=== PATIENT | female | born 1950 | race Caucasian/White ===

== ENCOUNTER 2018-06-11 21:48 | Emergency (ER) | payer MEDICARE, MEDICAID ==
--- NOTE | 2018-06-11 21:59 | EDM.PDOC ---
ED HPI GENERAL MEDICAL PROBLEM - General Stated Complaint: FELL Time Seen by Provider: 06/11/18 21:48 Source of Information: Reports: Patient, Other (manager advanced) History Limitations: Reports: Other - History of Present Illness INITIAL COMMENTS - FREE TEXT/NARRATIVE: 68 y.o.w f came to the ed by van from the [facility]. Pt was found next to her bed, face down, in a "pool of blood" As per nursing aid. Pt herself is not able to give a HPI. No family is present. On arrival, there was blood using from her left nostril, which stopped after Afrin was injected in her left nostril. The nose was deformed. No N/V/D no Dressiness. Pt noticed a bruise at her right ant knee, minor. She had FROM of all her extremities. No other acute medical issues. BP 162/88 RR 18 Pulse ox 96% on RA Pulse 105 Temp 36.6 Onset Date: 06/11/18 Onset Time: 20:00 Duration: Hour(s): Location: Reports: Face Quality: Reports: Ache Severity: Mild Improves with: Reports: Medication, Rest Worsens with: Reports: Movement Context: Reports: Trauma (fell on face) Associated Symptoms: Reports: Other (nosebleed) - Related Data Allergies Allergy/AdvReac Type Severity Reaction Status Date / Time acetaminophen Allergy Hives Verified 01/15/16 16:09 codeine Allergy Hives Verified 01/15/16 16:09 Home Meds: Home Meds Cyanocobalamin (Vitamin B12) [Vitamin B12] 1,000 mcg IM Q30D 04/27/13 [History] Levothyroxine [Synthroid] 100 mcg PO DAILY 04/27/13 [History] Cholecalciferol (Vitamin D3) [Vitamin D3] 2,000 unit PO DAILY 06/15/13 [History] Aspirin [Halfprin] 81 mg PO DAILY 07/07/15 [History] Clindamycin Phosphate [Cleocin T] 1 applic TP DAILY PRN 07/07/15 [History] ClonazePAM [KlonoPIN] 0.25 mg PO BEDTIME 07/07/15 [History] Escitalopram [Lexapro] 10 mg PO DAILY #14 07/08/15 [Rx] Mirtazapine 7.5 mg PO BEDTIME 01/15/16 [History] Ascorbic Acid [Vitamin C] 60 mg PO ASDIRECTED PRN 06/11/18 [History] Bisacodyl 10 mg RC DAILY PRN 06/11/18 [History] Carbidopa/Levodopa [Carbidopa-Levodopa 25-250] 1 each PO QID 06/11/18 [History] Magnesium Hydroxide [Milk of Magnesia] 30 ml PO DAILY PRN 06/11/18 [History] Multivit-Min/FA/Lycopene/Lut [Centrum Silver Tablet] 1 each PO DAILY 06/11/18 [ History] OLANZapine [Zyprexa] 5 mg PO BEDTIME 06/11/18 [History] Past Medical History HEENT History: Reports: None Cardiovascular History: Reports: Hypertension Respiratory History: Reports: None Gastrointestinal History: Reports: None Genitourinary History: Reports: None JOURNEYMAN MECHANIC History: Reports: None Other JOURNEYMAN MECHANIC History: MENOPAUSE, ENDOMETRIAL HYPERPLASIA Musculoskeletal History: Reports: None Other Musculoskeletal History: MUSCLE WEAKNESS Neurological History: Reports: Parkinson's Psychiatric History: Reports: Dementia Endocrine/Metabolic History: Reports: Hypothyroidism Hematologic History: Reports: B12 Deficiency, Other (See Below) Other Hematologic History: vit D dificiency Immunologic History: Reports: None Oncologic (Cancer) History: Reports: None Dermatologic History: Reports: None - Infectious Disease History Infectious Disease History: Reports: None Social & Family History - Family History Family Medical History: Unobtainable - Caffeine Use Caffeine Use: Reports: Coffee ED ROS ENT - Review of Systems Review Of Systems: Unable To Obtain ED EXAM, ENT - Physical Exam Exam: See Below Exam Limited By: Other (poor historian) General Appearance: Alert, WD/WN, Mild Distress Eye Exam: Bilateral Eye: Normal Inspection Ears: Normal External Exam Nose: Nasal Deformity, Dried Blood Mouth/Throat: Normal Gums, Normal Lips, Other (poor dentition) Head: Facial Tenderness, Other (nasal deformity) Neck: Normal Inspection Respiratory/Chest: No Respiratory Distress, Lungs Clear, Normal Breath Sounds, Chest Non-Tender Cardiovascular: Normal Peripheral Pulses, Regular Rate, Rhythm, No Edema, No Gallop GI/Abdominal: Normal Bowel Sounds, Soft, Non-Tender, No Organomegaly, Pelvis Stable (Female) Exam: Deferred Rectal (Female) Exam: Deferred Back: Normal Inspection Extremities: Normal Range of Motion, Non-Tender, No Pedal Edema, Normal Capillary Refill, Other Neurological: Alert, CN II-XII Intact, Abnormal Gait (bed bound), Other (minor eccymosis right knee) Psychiatric: Normal Affect Skin: Warm, Dry, Intact, Normal Color, No Rash Lymphatic: No Adenopathy EKG INTERPRETATION EKG Date: 06/11/18 Time: 22:00 Rhythm: NSR Rate (Beats/Min): 73 [place]: Normal P-Wave: Present QRS: Normal ST-T: Normal QT: Normal Comparison: NA - No Prior EKG Course - Vital Signs Text/Narrative:: 68 y.o.w f came to the ed by van from the [facility]. Pt was found next to her bed, face down, in a "pool of blood" As per nursing aid. Pt herself is not able to give a HPI. No family is present. On arrival, there was blood using from her left nostril, which stopped after Afrin was injected in her left nostril. The nose was deformed. No N/V/D no Dressiness. Pt noticed a bruise at her right ant knee, minor. She had FROM of all her extremities. No other acute medical issues. BP 162/88 RR 18 Pulse ox 96% on RA Pulse 105 Temp 36.6 PE: Thin 68 y.o.w.f with a nose deformity and left ant epistaxis Imaging: Nasal bone fx, minor. Left sided epistaxis. minimal ecchymosis left ant knee Imaging: Nasal bone Fx Labs: Plts 1243 remainder of CBC was neg BMP neg except BUN was 21, Cr 1.2 GFR 45 Impression: Fall, Nasal bone Fx, epistaxis,Thrombocytosis Tx: Ice to the affected areas Reexam: Pt was stable in the ED Nosebleed stopped entirely Plan: D/C with instructions 9.56 am: Nurse Letty from [facility] was called and informed about the elevated Plts count being > 1000. lab results were faxed to [phone] Last Recorded V/S: Last Vital Signs Temp 36.8 C 06/12/18 00:16 Pulse 58 L 06/12/18 00:16 Resp 18 06/12/18 00:16 BP 174/74 H 06/12/18 00:16 Pulse Ox 98 06/12/18 00:16 - Orders/Labs/Meds Orders: Active Orders 24 hr Category Date Time Status EKG Documentation Completion [RC] ASDIRECTED Care 06/11/18 21:57 Active Head wo Cont [CT] Stat Exams 06/11/18 21:57 Taken Max Facial Sinus wo Cont [CT] Stat Exams 06/11/18 21:57 Taken EKG 12 Lead [EK] Routine Ther 06/11/18 21:57 Ordered Labs: Laboratory Tests 06/11/18 06/11/18 06/11/18 Range/Units 20:07 20:07 20:07 WBC 7.1 (4.5-12.0) X10-3/uL RBC 4.33 (3.23-5.20) x10(6)uL Hgb 12.7 (11.5-15.5) g/dL Hct 38.9 (30.0-51.3) % MCV 89.9 (80-96) fL MCH 29.4 (27.7-33.6) pg MCHC 32.8 (32.2-35.4) g/dL RDW 14.3 (11.5-15.5) % Plt Count 1243 H* (125-369) X10(3)uL MPV 6.8 L (7.4-10.4) fL Neut % (Auto) 70.6 (46-82) % Lymph % (Auto) 19.0 (13-37) % [place] % (Auto) 7.8 (4-12) % Eos % (Auto) 2 (1.0-5.0) % Baso % (Auto) 1 (0-2) % Neut # (Auto) 5.0 (1.6-8.3) # Lymph # (Auto) 1.4 (0.6-5.0) # [place] # (Auto) 0.6 (0.0-1.3) # Eos # (Auto) 0.1 (0.0-0.8) # Baso # (Auto) 0.0 (0.0-0.2) # Sodium 135 (135-145) mmol/L Potassium 3.8 (3.5-5.3) mmol/L Chloride 99 L D (100-110) mmol/L Carbon Dioxide 28 (21-32) mmol/L BUN 21 H (7-18) mg/dL Creatinine 1.2 H (0.55-1.02) mg/dL Est Cr Clr Drug Dosing 36.12 mL/min Estimated GFR (MDRD) 45 L (>60) BUN/Creatinine Ratio 17.5 (9-20) Glucose 113 (80-116) mg/dL Calcium 8.8 (8.6-10.2) mg/dL Troponin I < 0.017 L (<0.017-0.056) ng/mL Departure - Departure Time of Disposition: 23:47 Disposition: Home, Self-Care 01 Condition: Good Clinical Impression: Mild epistaxis, Thrombocythemia Nasal bone fracture Qualifiers: Encounter type: initial encounter Fracture type: closed Qualified Code(s): S02.2XXA - Fracture of nasal bones, initial encounter for closed fracture Fall Qualifiers: Encounter type: initial encounter Qualified Code(s): W19.XXXA - Unspecified fall, initial encounter - Discharge Information Instructions: Nasal Fracture, [id number], Nosebleed, [id number] Referrals: Monty Sutherland MD [Primary Care Provider] - Forms: ED Department Discharge Additional Instructions: Motrin for pain, ice to the affected area, Afrin nasal spray if nose bleed starts again. Please f/u with your PMD regarding the Thrombocythemia - My Orders Last 24 Hours: My Active Orders 06/11/18 21:57 EKG Documentation Completion [RC] ASDIRECTED Head wo Cont [CT] Stat Max Facial Sinus wo Cont [CT] Stat EKG 12 Lead [EK] Routine - Assessment/Plan Last 24 Hours: My Active Orders 06/11/18 21:57 EKG Documentation Completion [RC] ASDIRECTED Head wo Cont [CT] Stat Max Facial Sinus wo Cont [CT] Stat EKG 12 Lead [EK] Routine
[2018-06-12 00:21] VITALS: BP 174/74
== END 2018-06-12 00:16 | disposition home or self-care (01) ==
LOC: FB.ED 21:48
DX: S02.2XXA Fracture of nasal bones, initial encounter for closed fracture (principal); D47.3 Essential (hemorrhagic) thrombocythemia; Z88.5 Allergy status to narcotic agent; Z88.8 Allergy status to other drugs, medicaments and biological substances; W06.XXXA Fall from bed, initial encounter
CPT/HCPCS: 36415; 70450; 70486; 80048; 84484; 85025; 93005; 99284-25